=== PATIENT | male | born 1995 | race Two or more races ===

== ENCOUNTER 2021-12-13 14:42 | Emergency (ER) | payer OTHER ==
[~2021-12-13] VITALS: Ht 167.6 cm; Wt 79.4 kg
[2021-12-13 14:54] VITALS: BP 146/57
--- NOTE | 2021-12-13 15:30 | NUR ---
OCHOA GERMAIN CALLED FOR HOMELESS DISCHARGE REFERRALS PER ORDER
[2021-12-13] MEDS ORDERED: CHLO25CA22 PO (15:47)
--- NOTE | 2021-12-13 16:12 | NUR ---
SS Consult: SS consult requested for alcohol use. The pt. is a 26 year old Black male. The pt. is alert &oriented x 4 with good eye contact. The pt. is pleasant and remained cooperative throughout intrview. The pt. states he would like help with alcohol use. Pt. states he drinks 1 bottle of [place] daily. SW offered referral for rehab and pt. stated he is agreeable to outpatient rehab. SW will follow up and make referral. SW explored pt.'s living situation. Pt. stated that he has been reciding in his car and is experiencing homelessness. Pt. stated he would like to return there once ready for discharge. The pt. denies any drug use. Pt. denies any Hx. of mental illness or taking any antidepressants or psychotropic medications. Pt. denies current SI/HI and states he experiences intermittent visual hallucinations. Pt. states he is ambulatory and independent with all his ADL's. Pt. signed homeless waiver and it was placed in the chart. SW provided homeless resources and pt. accepted them. SW offered alf placement and pt. refused. Pt. states he will be returning to live in his car which is located near . KRISHNA provided pt. with TAP card. Substance Abuse resources provided included: [facility] Substance Abuse Self-Helpline ([facility]) ; CRI [facility]LP [address] [facility] [place] 9[address] ; [facility] [address] [facility] [address] ; [facility] [address] [facility] [address] ; [facility] [address] [facility] [address] ; [facility] [address] [facility] [address] ; [facility] [address] [facility] [address] ; [facility] Substance Abuse Helpline([facility] ; [facility] ; [facility]; [facility] [place]; [facility] [place]; [facility] [place] [place]; [facility] [place]; [facility]. [facility]; Alcoholics Anonymous -[facility]; Zj-Wqnt-Levsqvw ; Marijuana Anonymous -[facility]V; Narcotics Anonymous www.na.org; Year-round shelters: [facility] [address] [place] [address] ; [facility] [address] [place] [address]; [facility] [address] [facility]. [facility] [phone] Hygiene: [facility]: [address] [place] ; [facility] [address] [facility] ; [facility] [address] [facility] . Food Resources: [facility] at [facility]- [address] [facility]; Meet Each Need with Dignity ([facility]) [address] [facility]; [facility] Food [facility] [address] [facility]; [facility] 1819 [facility] Mental Health resources provided: [facility] [address] [place] [address] ; [facility] [address] [address] ; [facility] [address] [place] [address] ; [facility] [place], [place] [phone] Healthcare Clinics: [facility] [address], [address] [place]. [place] ; [facility] [address] [facility] [address] [place] [address]; [facility] [address] [place] [address] [phone]) [phone] Counseling--Outpatient [facility] [address] [facility], [place] [address] (Specializes in in-depth psychotherapy for emotional distress: anxiety, depression, interpersonal conflicts, life transitions, childhood abuse) [facility] [address] [place] [address] (Assist with solving problem marital difficulties, separation & divorce, aging parents, & grief, chronic & terminal illness) [facility] [address] [place] [address] (Deal with loss & grief, anxiety, marital difficulties) Homebound/Mental Health Services [address] [place] [address] (Provide in-home mental services to people who are incapable of leaving their homes) [facility] Senior Service/Resource Center [address] [place] [address] [facility] [address] [place] [address] PSYCHIATRIC OUTPATIENT SERVICES [facility] Partial Hospitalization and Intensive Outpatient Program (Managed Care and [place] Only)[address] [facility] [phone] [facility] Partial Hospitalization and Outpatient [id number] [address] [place], [place] [phone] JAMES [facility] [address] [place], [place] [phone] [facility] Partial Hospitalization and Outpatient [id number] [facility], [phone]
== END 2021-12-13 16:17 | disposition home or self-care (01) ==
LOC: ER 14:49
DX: F10.239 Alcohol dependence with withdrawal, unspecified (principal); I10 Essential (primary) hypertension; J45.909 Unspecified asthma, uncomplicated; Z79.899 Other long term (current) drug therapy; Y90.9 Presence of alcohol in blood, level not specified

== ENCOUNTER 2023-05-31 02:31 | Emergency (ER) | payer OTHER ==
[~2023-05-31] VITALS: Ht 170.2 cm; Wt 72.6 kg
[~2023-05-31 02:31] MED LIST: CHLO25CA22 PO
[2023-05-31 03:26] VITALS: BP 127/70; TEMP 98.1; O2SAT 97
== END 2023-05-31 03:26 | disposition home or self-care (01) ==
LOC: ER 02:36
DX: Z76.5 Malingerer [conscious simulation] (principal); Z71.1 Person with feared health complaint in whom no diagnosis is made; I10 Essential (primary) hypertension; J45.909 Unspecified asthma, uncomplicated; Z79.899 Other long term (current) drug therapy